=== PATIENT | female | born 1990 | race American Indian/Alaskan Native ===

== ENCOUNTER 2020-01-06 08:05 | Day surgery (SDC) | payer MEDICAID ==
[2020-01-03 15:32] LABS: BASOPHILS # (AUTO) 0.1 X10'3 (0-0.2); BASOPHILS % (AUTO) 0.5 % (0-1); EOSINOPHILS # (AUTO) 0.2 X10'3 (0-0.9); EOSINOPHILS % (AUTO) 2.3 % (0-6); LYMPHOCYTES # (AUTO) 2.6 X10'3 (1.1-4.8); LYMPHOCYTES % (AUTO) 25.3 % (21-51); MEAN CORPUSCULAR HEMOGLOBIN 32.5 PG (27.0-31.0); MEAN CORPUSCULAR HGB CONC 34.3 g/dL (33.0-36.5); MEAN CORPUSCULAR VOLUME 94.7 FL (78-98); MEAN PLATELET VOLUME 8.7 FL (7.4-10.4); MONOCYTES # (AUTO) 0.5 X10'3 (0-0.9); MONOCYTES % (AUTO) 5.1 % (2-12); NEUTROPHILS # (AUTO) 6.9 X10'3 (1.8-7.7); NEUTROPHILS % (AUTO) 66.8 % (42-75); PRE OP HEMATOCRIT 44.1 % (35.0-45.0); PRE OP HEMOGLOBIN 15.1 g/dL (12.0-16.0); PRE OP PLATELET COUNT 239 X10'3 (140-440); RED BLOOD COUNT 4.65 X10'6 (4.20-5.60)
[2020-01-03 15:50] LABS: HCG SERUM QL NEGATIVE
[2020-01-03 15:57] LABS: ALBUMIN 4.6 G/DL (3.4-5.0); ALBUMIN/GLOBULIN RATIO 1.5 (1.1-1.5); ALKALINE PHOSPHATASE 61 IU/L (46-116); BLOOD UREA NITROGEN 19 MG/DL (7-18); BUN/CREATININE RATIO 26.4 (6.6-38.0); CHLORIDE 105 MMOL/L (99-107); CREATININE 0.72 MG/DL (0.40-0.90); PRE OP ALT 24 U/L (30-65); PRE OP ANION GAP 11 (8-16); PRE OP AST 14 U/L (10-37); PRE OP BILIRUB, TOTAL 1.4 MG/DL (0.0-1.0); PRE OP GLUCOSE 95 MG/DL (70-104); PRE OP POTASSIUM 3.6 MMOL/L (3.4-5.1); PRE OP SODIUM 138 MMOL/L (135-145); TOTAL CARBON DIOXIDE 22.4 MMOL/L (24-32); TOTAL PROTEIN 7.7 G/DL (6.4-8.2); eGFR > 90 ML/MIN
[~2020-01-06] VITALS: Ht 165.1 cm; Wt 83.1 kg
[2020-01-06] VITALS (8 sets, daily range): BP systolic 106–136; BP diastolic 59–85
[~2020-01-06 08:05] MED LIST: ALBU18HF2 INH; ALBU8HFA PO; BIRTH CONTROL; FLUT16SP2 BOTHNARES; MONT10TA21 PO; SUMA25TA35 PO; acetaminophen 1,000mg/100ml IV 100 ML IV PRN; famotidine 20mg tablet PO ONE; ketorolac trometh. 30mg/ml inj. IV ONE; meperidine/PF 25mg/ml syringe IV PRN; morphine 2 MG/ML inj. syringe IV PRN; morphine 4 MG/ML inj SYRINge IV PRN; ondansetron/PF 4mg/2ml inj IV PRN; proCHLORperazine 10 MG/2 ml inj IV PRN; ringers solution, lacted 1,000 ML IV SCH
[2020-01-06] MEDS ORDERED: sevoflurane 250ml liquid IH ONE (10:46)
[2020-01-06] MEDS ORDERED: midazolam 2 mg/2 ml injection ONE (10:48)
[2020-01-06] MEDS ORDERED: fentaNYL/PF 50MCG/1 ML 2ML syringe ONE (10:48)
[2020-01-06] MEDS ORDERED: ondansetron/PF 4mg/2ml inj ONE (11:51)
[2020-01-06] MEDS ORDERED: dexamethasone sod phosphate 4mg/ml inj. ONE (11:51)
[2020-01-06] MEDS ORDERED: propofol inj 20 ML IV ONE (11:51)
[2020-01-06] MEDS ORDERED: rocuronium 10mg/ml inj IV ONE (11:51)
[2020-01-06] MEDS ORDERED: LIDOcaine 2% (20mg/ml) 5ml vial ONE (11:51)
[2020-01-06] MEDS ORDERED: neostigmine methylsulfate 1 MG/ML 10ml vial ONE (11:56)
[2020-01-06] MEDS ORDERED: glycopyrrolate 0.2mg/ml inj ONE (11:56)
[2020-01-06] MEDS ORDERED: meperidine/PF 25mg/ml syringe ONE (12:02)
--- NOTE | 2020-01-06 12:07 | NUR ---
Received from OR via [facility] , accompanied by Anesthesiologist CODY and report given by Anesthesiolgist. VSS. MEDICATED FOR PAIN UPON ARRIVAL. PATIENT WITH 20G PIV IN RIGHT UE RUNNING LR AT 100. PATIENT WITH ONE UMBILICAL BANDAID THAT IS CDI. CHASE PAD IN PLACE. 10L MASK ON WITH 100% SATURATIONS. Addendum: 01/06/20 at 1222 by Moncho Sosa RN, RN Amended: Links added.
--- NOTE | 2020-01-06 13:07 | NUR ---
PATIENT AND FAMILY AND THEY HAVE VERBALIZED UNDERSTANDING, OPPORTUNITY TO ASK QUESTIONS GIVEN AND PATIENT COMFORTABLE WITH DC. IV TAKEN OUT WITHOUT COMPLICATION. PATIENT HAS MET ALL DC CRITERIA FOR DC HOME. I HAVE REVIEWED D/C INSTRUCTIONS WITH OUT VIA WHEELCHAIR WHERE PATIENT WAS TAKEN HOME WITH ALL BELONGINGS. FAMILY GAVE PATIENT TRANSPORT HOME. MOTHER PRESENT TO TAKE PATIENT HOME. ASSISTED PATIENT INTO VEHICLE. SECURED IN FRONT PASSENGER SEAT. PATIENT STILL NAUSEATED DESPITE ZOFRAN ADMINISTRATION. OFFERED TO CALL MD FOR COMPAZINE HOWEVER PATIENT DECLINED. GAVE TWO EMESIS BAGS FOR TRANSPORT HOME. CALLED IN PRESCRIPTION OF WAG[facility]REENS CYP/ CHN CK AND SPOKE DIRECTLY TO PHARMACIST. CARE TURNED OVER TO FAMILY. Addendum: 01/06/20 at 1327 by Moncho Sosa RN, RN Amended: Links added.
== END 2020-01-06 13:07 | disposition home or self-care (01) ==
LOC: PAS 08:05
PROVIDERS: ATTEND Obstetrics & Gynecology
DX: Z30.2 Encounter for sterilization (principal); N92.0 Excessive and frequent menstruation with regular cycle; J45.909 Unspecified asthma, uncomplicated; Z98.890 Other specified postprocedural states
CPT/HCPCS: 36415; 58558; 58670; 80053; 82948; 84703; 85025; 87635; 93005; J1100; J2001; J2175; J2250; J2405; J2704; J2710; J3010; J7120; A4355; A4618; A6258; A7000; J3490